=== PATIENT | female | born 1985 | race Caucasian/White ===

== ENCOUNTER 2017-05-03 07:00 | Inpatient (IN) | payer OTHER ==
--- NOTE | ~2017-05-03 | PN ---
Unit #: [id number] #: [id number] Patient: CADEN ARBOLEDA [id number] [facility] [address] [place] [address] [id number] MR#: [id number] NAME: CADEN ARBOLEDA ROOM: P202 Age: 31 Sex: F Admission Date: 05/03/2017 : 1985 Attending Physician: Babs Kurtz M.D. Admitting Physician: Babs Kurtz M.D. Primary Care Physician: Primary Care Physician Layla LOVE PROGRESS NOTES DATE May 07, 2017 DISCUSSION Ms. Arboleda is a 31-year-old white female, who was seen today and the chart was reviewed and discussed with the staff. She has been anxious, withdrawn, and is seclusive to herself and she has not shown any agitation or aggression and has been cooperative with the treatment recommendations. She denies any suicidal or homicidal ideations and she is being maintained on her current medications and we will monitor her response to the medications. Dictated by... Isaias Maravilla/mike TD: 05/08/2017 09:45 JOB #: [id number] [facility] PROGRESS NOTES Page 1 of 1 X Babs Kurtz MD PROGRESS NOTE
--- NOTE | ~2017-05-03 | DS ---
Unit #: [id number] #: [id number] [facility]: [facility] [id number] [facility] [address] [place] [address] [id number] MR#: [id number] NAME: CADEN ROUSE ROOM: P202 Age: 31 Sex: F Admission Date: 05/03/2017 : 1985 Discharge Date: 05/08/2017 Attending Physician: Babs Kurtz M.D. Primary Care Physician: Primary Care Physician No DISCHARGE SUMMARY IDENTIFYING DATA Ms. Rouse is a 31-year-old, single, white female who is a resident of [place], [place], and was self-referred to the hospital on voluntary basis. DISCHARGE DIAGNOSIS Psychiatric: Major depressive disorder, recurrent, moderate, with psychosis; opioid dependence, moderate and acute withdrawals; methamphetamine dependence, moderate; cocaine dependence, moderate. Medical: Hepatitis C. Stressors: Moderate psychosocial stressors. HISTORY OF PRESENT ILLNESS Please see initial psychiatric evaluation for details. PAST PSYCHIATRIC HISTORY Please see initial psychiatric evaluation for details. PAST MEDICAL HISTORY Please see initial psychiatric evaluation for details. HOSPITAL COURSE The patient was admitted to the adult chemical dependency unit at [facility] and was oriented to the hospital environment. Routine p.r.n. medications were initiated, and she was started back on her home medications and Seroquel was given to help cut with psychosis. She was taking medications regularly and was tolerating them fairly well and was able to show a fairly decent therapeutic response with complete resolution of psychosis and as such, it was decided that she will be discharged home and will continue treatment on an outpatient basis. DISCHARGE MEDICATIONS None. DISCHARGE CONDITION Stable. PROGNOSIS Fair. Dictated by... Babs Kurtz M.D. Unit #: [id number] #: [id number] Patient: CADEN ROUSE IAA/modl TD: 05/08/2017 23:04 JOB #: [id number] DISCHARGE SUMMARY Page 1 of 1 X Babs Kurtz MD DISCHARGE SUMMARY
--- NOTE | ~2017-05-03 | PN ---
Unit #: [id number] #: [id number] Patient: CADEN ARBOLEDA [id number] [facility] [address] [place] [address] [id number] MR#: [id number] NAME: CADEN ARBOLEDA ROOM: P202 Age: 31 Sex: F Admission Date: 05/03/2017 : 1985 Attending Physician: Babs Kurtz M.D. Admitting Physician: Babs Kurtz M.D. Primary Care Physician: Primary Care Physician Layla LOVE PROGRESS NOTES DATE OF SERVICE 05/06/2017 DISCUSSION Ms. Arboleda is a 31-year-old white female who was seen today. Chart was reviewed and case was discussed with the staff. She has been anxious, withdrawn, unkempt, disheveled, disorganized, and seclusive to herself as she goes through detox and has not been able to interact or participate in treatment-related activities and appears to be quite compromised at this time. She has been, however, taking the medications and tolerating them fairly well with no reported side effects. MENTAL STATUS EXAMINATION Young white female who is casually dressed with fair personal hygiene and appears to be in no acute distress or discomfort. She was awake and alert with impaired attention and concentration. Her mood is anxious with congruent affect. She denies any suicidal or homicidal ideations. Her insight and judgment remain slightly impaired. TREATMENT PLAN 1. We will continue her on her current medications and treatment protocol. We will monitor her response and make further adjustments as needed. 2. We will continue to follow up. Dictated by... Isaias Maravilla/kenny TD: 05/06/2017 12:01 JOB #: [id number] Unit #: [id number] #: [id number] Patient: CADEN ARBOLEDA PROGRESS NOTES Page 1 of 1 X Babs Kurtz MD PROGRESS NOTE
--- NOTE | ~2017-05-03 | PN ---
Unit #: [id number] #: [id number] Patient: CADEN ARBOLEDA [id number] [facility] [address] [place] [address] [id number] MR#: [id number] NAME: CADEN ARBOLEDA ROOM: P202 Age: 31 Sex: F Admission Date: 05/03/2017 : 1985 Attending Physician: Babs Kurtz M.D. Admitting Physician: Babs Kurtz M.D. Primary Care Physician: Primary Care Physician Layla LOVE PROGRESS NOTES DATE 05/04/2017 DISCUSSION Ms. Arboleda is a 31-year-old white female who was seen today and chart was reviewed and case was discussed with the staff. She has been anxious, withdrawn and rather seclusive to herself. Meanwhile, she has been cooperative with treatment recommendations as she has been taking the medications and tolerating them fairly well. MENTAL STATUS EXAMINATION Young white female who was casually dressed with fair personal hygiene, appears to be in distress or discomfort. She was awake and alert on interaction with intact orientation. Her mood was anxious with congruent affect. Her speech was slow and goal-directed. She denies any suicidal or homicidal ideations. Her insight and judgement remains slightly impaired. TREATMENT PLAN 1. We will continue her on her current medications and treatment protocol. We will monitor her response to the medication and make further adjustments as needed. 2. We will continue to follow up. Dictated by... Isaias Maravilla/emile TD: 05/05/2017 02:24 JOB #: [id number] Unit #: [id number] #: [id number] Patient: CADEN ARBOLEDA PROGRESS NOTES Page 1 of 1 X Babs Kurtz MD PROGRESS NOTE
--- NOTE | ~2017-05-03 | HP ---
Unit #: [id number] #: [id number] Patient: CADEN ARBOLEDA [id number] [facility] [address] [place] [address] [id number] I MR#: [id number] NAME: CADEN ARBOLEDA ROOM: P202 Age: 31 Sex: F Admission Date: 05/03/2017 : 1985 Attending Physician: Babs Kurtz M.D. Admitting Physician: Babs Kurtz M.D. Primary Care Physician: Primary Care Physician No HISTORY AND PHYSICAL HISTORY OF PRESENT ILLNESS The patient is a 31-year-old female admitted to [address] [place] [address] on 05/03/2017 for her heroin abuse and psychosis. PAST MEDICAL HISTORY Hepatitis C. PAST SURGICAL HISTORY 1. Ovarian cyst removal 2. D&C SOCIAL HISTORY She is unemployed and homeless. Smokes one pack of cigarettes daily. Drinks one liter to one-fifth of alcohol daily and uses multiple substances. FAMILY MEDICAL HISTORY Noncontributory. ALLERGIES Imitrex CURRENT MEDICATIONS The patient is not on any home medications. REVIEW OF SYSTEMS CONSTITUTIONAL: No fever or chills. HEENT: Denies any sore throat, ear pain or runny nose. CARDIOVASCULAR: Denies chest pain, irregular heart rhythm or palpitations. CHEST: Denies shortness of breath or cough. No hemoptysis. GASTROINTESTINAL: Denies nausea, vomiting, diarrhea or chronic constipation. ENDOCRINE: Denies history of increased thirst or urination. No recent significant weight loss or gain. GENITOURINARY: Denies dysuria, frequency, or hematuria. SKIN: Denies any rashes. HEMATOLOGIC: Denies history of increased bleeding or bruising. MUSCULOSKELETAL: Denies any hot, swollen joints. No generalized muscle pain. NEUROLOGIC: Denies problems with vision or speech. No frequent, severe headaches. No numbness, tingling or weakness in any extremities. Denies loss of bladder or bowel control. Unit #: [id number] #: [id number] Patient: CADEN ARBOLEDA PHYSICAL EXAM GENERAL: She is awake, alert and oriented in no acute distress. VITAL SIGNS: Temperature 97.2, heart rate 89, respiration 20, blood pressure 136/89. HEIGHT: 5'5". WEIGHT: 160 pounds. SKIN: Warm and dry without rash or lesion. HEENT: Normocephalic. TMs not viewed. Oral and nasal passages clear. Conjunctivae clear. PERRLA. EOMs intact. NECK: Supple without lymphadenopathy or thyromegaly. HEART: Regular rate and rhythm without murmur. LUNGS: Clear. ABDOMEN: Soft, nontender. : Not done. EXTREMITIES: No evidence of cyanosis, clubbing or edema. Moves all without focal deficit. NEUROLOGICAL: Grossly within normal limits. Cranial Nerves: II: Visual medrano are intact. III, IV AND : Extraocular movements are intact. Pupils are equal, round and reactive to light. V: Facial sensation is grossly normal. VII: Facial movements and expression are normal. VIII: Auditory acuity grossly intact. IX, X: Uvula is midline. Phonation is normal. XI: Patient shrugs shoulders and turns head normally. XII: Tongue protrudes in the midline. Sensory and Motor Function: Sensory and motor sensation is grossly normal. Motor: moves all extremities well. IMPRESSION 1. Psychiatric admission. 2. Hepatitis C. 3. Heroin abuse. RECOMMENDATIONS Psychiatric per psychiatrist. MEDICAL: No contraindication to participate in facility activities. MEDICAL PROGNOSIS Good. MEDICAL CONDITION Stable. Dictated by... Danita Marks/emile TD: 05/03/2017 22:07 JOB #: [id number] Unit #: [id number] #: [id number] Patient: CADEN ARBOLEDA HISTORY AND PHYSICAL Page 1 of 1 X HONORIO JEONG APRN HISTORY AND PHYSICAL
--- NOTE | ~2017-05-03 | PA ---
Unit #: [id number] #: [id number] Patient: CADEN ROUSE [id number] [facility] [address] [place] [address] [id number] MR#: [id number] NAME: CADEN ROUSE ROOM: P202 Age: 31 Sex: F Admission Date: 05/03/2017 : 1985 Date of Assessment: 05/04/2017 Attending Physician: Babs Kurtz M.D. Admitting Physician: Babs Kurtz M.D. Primary Care Physician: Primary Care Physician No PSYCHIATRIC ASSESSMENT IDENTIFYING DATA Ms. Rouse is a 31-year-old single white female who is a resident of [place], [place] and was self-referred to the hospital on a voluntary basis. CHIEF COMPLAINT "I know the gaston is talking to me and I've been using heroin 2 g a day for 5 years." HISTORY OF PRESENT ILLNESS Ms. Rouse is a 31-year-old white female with history of substance abuse and dependence, who was self-referred to the hospital. Reports that she has been using a high amount of heroin on a daily basis and "I feel like people are after me. My last use was last night, 2 g of cocaine, I smoked it, I snorted it, I shot it up, and 2 shots of whiskey. The gaston is trying to warn me, the world is going to end and he wants me to join his team, but first I've to kill myself. The devivern has been the only one there for me, he has been there for 4 months now." She was seen to be acutely psychotic with bizarre behavior, increasing agitation, depression, irritability, impulsivity, and reports that she has had significant consequences because of her addiction and conflict with her family due to her drug use and that she feels hopeless and helpless and has very low energy. She also reports that she is homeless and has not eaten or slept or bathed in days and does report increasing depression and suicidal ideations, stating that the devil is telling her to kill herself and that she has attempted to slit her wrist several years ago. SUBSTANCE ABUSE HISTORY The patient has extensive history of substance abuse and dependence, though she reports that she started with alcohol at age of 9 and since then, she has done alcohol, cannabis, cocaine, opioids, methamphetamine, benzodiazepines, synthetic drugs, and methadone, and currently she reports IV heroin and IV methamphetamine to be her drug of choice, though she reports that she has done cocaine yesterday as well. She describes heroin to be her drug of choice. PAST PSYCHIATRIC HISTORY The patient has had a history of chemical dependency treatment in the past, and review of the medical records indicated that currently she is not active in any treatment program, is not seeing a psychiatrist, and is not taking any psychotropic medications. PAST MEDICAL HISTORY Unit #: [id number] #: [id number] Patient: CADEN ROUSE Hepatitis C. ALLERGIES Imitrex. PERSONAL AND SOCIAL HISTORY A 31-year-old white female who reports that she is single, unemployed, and lives by herself and has poor social support system. MENTAL STATUS EXAMINATION Young white female who was casually dressed with fair personal hygiene, appears to be in no acute distress or discomfort. She was awake and alert on interaction with intact orientation to time, place, and person. Her mood was anxious and depressed with a congruent affect. Her speech was slow and restricted in content. Her thought processes were disorganized with some looseness of associations, paranoid ideations, and suicidal ideations. Her insight and judgment remain significantly impaired. DIAGNOSTIC IMPRESSION Psychiatric: Major depressive disorder, recurrent, moderate, with psychosis; opioid dependence, moderate and acute withdrawals; methamphetamine dependence, moderate; cocaine dependence, moderate. Medical: Hepatitis C. Stressors: Moderate psychosocial stressors. TREATMENT PLAN 1. The patient has presented with a history of mood disorder and substance abuse and has been decompensating and will need inpatient hospitalization for detoxification, safety, and stabilization. We will start her back on her home medications. We will adjust the medications and monitor response. 2. Supportive therapy was provided to the patient. 3. Safe, structured, and nourishing environment will be provided. ESTIMATED LENGTH OF STAY 5 to 7 days. ABILITY TO HELP SELF Limited. WILLINGNESS TO HELP SELF The patient appears to be willing to help self. STRENGTHS 1. Communicative. 2. Cooperative. PROBLEMS 1. Chronic dysphoric symptoms. 2. Chronic chemical dependency. 3. Poor social support system. DISCHARGE CRITERIA This will be contingent upon the patient's ability to show resolution of her depression and psychosis and her ability to stay safe to herself, particularly after discharge from the hospital. Dictated by... Unit #: [id number] #: [id number] Patient: CADEN ROUSE M.D. IAA/willie TD: 05/04/2017 07:24 JOB #: [id number] PSYCHIATRIC ASSESSMENT Page 1 of 1 X Babs Kurtz MD PSYCHIATRIC ASSESSMENT
--- NOTE | ~2017-05-03 | PN ---
Unit #: [id number] #: [id number] Patient: CADEN ROUSE [id number] [facility] [address] [place] [address] [id number] I MR#: [id number] NAME: CADEN ROUSE ROOM: P202 Age: 31 Sex: F Admission Date: 05/03/2017 : 1985 Attending Physician: Babs Kurtz M.D. Admitting Physician: Babs Kurtz M.D. Primary Care Physician: Primary Care Physician Layla ZIEGLER NOTES DATE OF SERVICE 05/05/2017 DISCUSSION Ms. Rouse is a 31-year-old white female who was seen today. Chart was reviewed and case was discussed with the staff. She has been anxious, withdrawn, and rather seclusive to herself. Meanwhile, she has been cooperative with the treatment recommendations and has been taking the medications and tolerating them fairly well with no reported side effects. MENTAL STATUS EXAMINATION Young white female who is casually dressed with fair personal hygiene and appears to be in no acute distress or discomfort. The patient was awake and alert with impaired attention and concentration. Her mood is anxious with congruent affect. She denies any suicidal or homicidal ideations. Her insight and judgment remain slightly impaired. TREATMENT PLAN 1. We will continue her on her current medications and treatment protocol. We will monitor her response to medications and make further adjustments as needed. 2. We will continue to follow up. Dictated by... Babs Kurtz M.D. IAA/bzg TD: 05/05/2017 15:07 JOB #: [id number] [facility] PROGRESS NOTES Page 1 of 1 X Babs Kurtz MD PROGRESS NOTE
[2017-05-04 10:02] LABS: BASOPHIL% 0.5 % (0-2.5); EOSINOPHIL# 0.1 X10e3 (0-0.7); EOSINOPHIL% 1.8 % (0.0-7.0); HEMATOCRIT 39.4 % (35.0-45.0); HEMOGLOBIN 12.9 gm/dL (12.0-16.0); LYMPHOCYTE# 3.4 X10e3 (1.0-3.5); LYMPHOCYTE% 56.3 % (17.0-45.0); MEAN CELL VOLUME 93.8 FL (83-96); MEAN CORPUSCULAR HEMOGLOBIN 30.7 PG (28-34); MEAN CORPUSCULAR HGB CONC 32.7 g/dL (30-36); MEAN PLATELET VOLUME 9.8 FL (6.5-11.5); MONOCYTE# 0.3 X10e3 (0-1.0); MONOCYTE% 5.6 % (3.0-12.0); NEUTROPHIL# 2.2 X10e3 (1.5-7.1); NEUTROPHIL% 35.8 % (40-75); PLATELET COUNT 162 X10e3 (140-420); RED CELL DISTRIBUTION WIDTH 12.3 % (11.0-15.5)
[2017-05-04 10:10] LABS: DIFF IND YES
[2017-05-04 10:30] LABS: ALBUMIN SERUM 3.8 g/dL (3.5-5.0); BILIRUBIN,TOTAL 0.6 mg/dL (0.2-2.0); CALCIUM SERUM 8.8 mg/dL (8.4-10.2); CREATININE SERUM 0.8 mg/dL (0.6-1.4); GLOM FILT RATE Estimated 99.7 mL/min (>60); POTASSIUM 4.1 mmol/L (3.5-5.1); PROTEIN TOTAL SERUM 6.4 g/dL (6.0-8.3)
[2017-05-04 10:53] LABS: PLATELET ESTIMATE NORMAL (NORMAL)
[2017-05-05 10:16] LABS: URINE BLOOD NEG (NEG); URINE COLOR BROWN; URINE GLUCOSE NORM (NORM); URINE KETONE NEG (NEG); URINE LEUKOCYTE ESTERASE NEG (NEG); URINE NITRATE NEG (NEG); URINE PROTEIN NEG (NEG); URINE UROBILINOGEN NORM (NORM)
[2017-05-05 10:20] LABS: URINE BILIRUBIN NEG (NEG); URINE SOURCE VOID
[2017-05-05 10:21] LABS: URINE APPEARANCE TURBID
[2017-05-05 10:34] LABS: AMPHETAMINE POS (NEG); BARBITURATES NEG (NEG); BENZODIAZEPINES POS (NEG); COCAINE POS (NEG); MARIJUANA POS (NEG); OPIATES NEG (NEG); TRICYCLIC ANTIDEPRESSANTS NEG (NEG); U METHADONE NEG (NEG)
== END 2017-05-08 13:00 | DRG 885 ==
LOC: P2S 10:20
PROVIDERS: Psychiatry & Neurology Psychiatry
PROC: HZ2ZZZZ Detoxification Services for Substance Abuse Treatment (ICD-10-PCS; principal; 2017-05-04)
DX: F33.1 Major depressive disorder, recurrent, moderate (principal); F14.20 Cocaine dependence, uncomplicated; F11.23 Opioid dependence with withdrawal; F15.20 Other stimulant dependence, uncomplicated; B19.20 Unspecified viral hepatitis C without hepatic coma
CPT/HCPCS: 80053; 80307; 81003; 84703; 85025; 86592